=== PATIENT | male | born 1970 | race Caucasian/White ===

== ENCOUNTER 2021-10-29 06:15 | Day surgery (SDC) | payer BC, SELFPAY ==
[2021-10-29] VITALS (8 sets, daily range): BP systolic 116–130; BP diastolic 75–79; PULSE 63–74; RESP 15–16; TEMP 36.1–36.3; O2SAT 92–98; BMI 27.8
[2021-10-29] MEDS: BUPIVACAINE 0.5% 30 ML INJECTION (07:00)
--- NOTE | 2021-10-29 07:34 | SUR.OPER ---
PATIENT QUESTIONS ANSWERED SATISFACTORILY PREOPERATIVELY.? PATIENT BROUGHT TO OR #3 PER WHEELCHAIR.? Patient positioned supine on OR #3 bed.?The perioperative?team supported arms bilaterally on arm boards.? Final approval of positioning by surgeon.?
--- NOTE | 2021-10-29 07:35 | PM.ORPRC ---
Procedure Note Date of procedure: 10/29/21 Procedure: PREOPERATIVE DIAGNOSIS: 1. Right thumb flexor tenosynovitis - trigger thumb POSTOPERATIVE DIAGNOSIS: 1. Right thumb flexor tenosynovitis - trigger thumb PROCEDURE: 1. Right thumb flexor tendon sheath open release (A1 ruy) SURGEON: Margarito Holloway MD. ANTIQUE REPAIRER: Kyle Mortensen PA-C ANESTHESIA: Local anesthetic 6 mL via 50:50 mixture of 1% lidocaine with epi and 0.5% marcaine plain EBL: 2mL IMPLANTS: None TOURNIQUET: None COMPLICATIONS: None evident INDICATIONS: The patient is a pleasant 50-year-old male who has experienced right thumb catching/triggering for number of months. It has progressively gotten worse. Given the failure of nonoperative management, and how this affects daily life, surgery was recommended. DESCRIPTION OF PROCEDURE: Following a thorough discussion of risks, benefits, and alternatives consent was obtained and the operative digit(s) was marked. The patient was brought to the operating room and placed supine on the operating table. Local anesthesia induction was undertaken in preop holding. No antibiotics were administered as this was planned to be a local case only. Proper time-out was performed identifying proper patient, site, and procedure. The operative extremity was prepped and draped in the appropriate sterile fashion using ChloraPrep. A incision was made on the palmar surface of the hand overlying the MCP joint region of the appropriate digit(s) respecting the palmar creases being cautious not to cross these perpendicularly. Sharp incision through the skin, and blunt dissection through subcutaneous tissue allowing protection of crossing neurologic structures. The A1 ruy was visualized directly. It was incised sharply with a 15 blade. It was released completely from its distal to proximal extent under direct visualization. The tendon was inspected and found to be mildly striated consistent with some friction. Otherwise, it was intact. The tendon was removed out of the wound, and further inspected. The patient was asked to manually flex and extend the digits and showed no further catching. The catching, which was visualized initially, was no longer evident with reproduction of a manual fist and relaxation. Closure was performed with 4-O nylon in interrupted fashion. Soft dressings were applied, and the patient was transferred to the recovery room in stable condition. PLAN: 1. Encourage elevation of the operative extremity. 2. Range of motion of the fingers and hand/wrist as tolerated. 3. Ibuprofen/acetaminophen and/or Percocet as needed for pain control. 4. Follow up with PA visit in 12-16 days for wound check and suture removal.
[2021-10-29] MEDS: NEOMYCIN/BACITRACIN/POLYMYXIN B 1 APPLIC TOPICAL (07:42)
--- NOTE | 2021-10-29 08:17 | SUR.PREOP ---
SAME DAY SURGERY LOCAL INJECTION SITE VERIFICATION WAS PERFORMED BY SURGEON/PA AND PATIENT PRIOR TO LOCAL ANESTHETIC BEING INJECTED TO OPERATIVE SITE.
== END 2021-10-29 08:12 | disposition home or self-care (01) ==
PROVIDERS: PCP Family Medicine; Visit Provider Orthopaedic Surgery Sports Medicine
PROC: (CPT 26055; principal; 2021-10-29 07:15)
DX: M65.311 Trigger thumb, right thumb (principal); M65.841 Other synovitis and tenosynovitis, right hand
CPT/HCPCS: 26055; J3490

== ENCOUNTER 2021-12-03 09:28 | Emergency (ER) | payer BC, SELFPAY ==
[2021-12-03] VITALS (7 sets, daily range): BP systolic 129–145; BP diastolic 79–89; PULSE 59–69; RESP 12–20; TEMP 36.4; O2SAT 96–99; BMI 27.9
--- NOTE | 2021-12-03 10:33 | CRLHL7_ITS ---
For Patients: As a result of the Century Cures Act, medical imaging exams and procedure reports are released immediately into your electronic medical record. You may view this report before your referring provider. If you have questions, please contact your health care provider. INDICATION: Constant left arm pressure and intermittent finger coolness TECHNIQUE: CT chest PE was acquired with 98 cc Isovue 370 intravenous contrast. COMPARISON: None. FINDINGS: Heart and vasculature: Contrast opacification of the pulmonary arterial tree is adequate. No sign of pulmonary embolism. Heart size is normal. Thoracic aorta and pulmonary artery are normal in caliber. Lungs and pleural: No pleural effusion or pneumothorax. Subpleural nodule along the left major fissure measuring 4 millimeters (5, 103). Lymph nodes/mediastinum: No mediastinal, hilar, or axillary adenopathy. Chest wall: No masses. Upper abdomen: Normal. Bones: Unremarkable for age. IMPRESSION: 1. No evidence of pulmonary embolus. 2. Subpleural nodule along the left major fissure measuring 4 millimeters. Management as per Zayra society criteria below. SOCIETY GUIDELINES - SOLID NODULES: SINGLE LOW RISK - nodule less than 6 mm: No routine follow-up. SINGLE HIGH RISK - nodule less than 6 mm: Optional CT at 12 months. Please note that all CT scans at this facility use dose modulation, iterative reconstruction, and/or weight-based dosing when appropriate to reduce radiation dose to as low as reasonably achievable. Dictated by Pranav Larson MD @ 12/03/2021 12:22:11 PM (Electronically Signed)
--- NOTE | 2021-12-03 10:35 | ED_ITS ---
HPI - General Adult General Chief complaint: Chest Pain Stated complaint: Pain in chest and lt arm and back Time Seen by Provider: 12/03/21 10:19 History of Present Illness HPI narrative: 50-year-old man presenting to the emergency department with left arm pressure that has been increasing over the last week. Initially at rest might feel sensation of somebody pushing firmly on his upper under arm area and now it has become fairly constant. Will flare at times to more intense and will feel cold in his fingers of the same hand. All his fingers. He does not recall any trauma. No neck pain. He has been having pain now that he would not necessarily associate with this in his left upper back. No actual chest pain. No shortness of breath. No fever no cough cold symptoms. He has over this time, maybe a little bit longer also been experiencing dizziness with some spinning around him. Not so much lightheadedness. He noticed this rolling over in bed or when he bends down and then comes back up. There was a brief episode some time back where he had a flickering of his vision briefly during a conversation I believe. He notes that his mother struggled with vertigo. He maybe feels slightly congested but not noticeably so, just on reflection here in conversation. No facial pain. No visual disturbance at this time. Spouse was diagnosed with COVID 10 days ago. He himself has been free of what he would say would are associated symptoms. He has tested negative. He is vaccinated. Arm discomfort is not associated with movement. 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 Related Data Home Medications Medication Instructions Recorded Confirmed aspirin 81 mg tablet,delayed 81 mg PO QDAY 10/22/21 11/09/21 release lisinopril 20 mg tablet 20 mg PO DAILY 10/22/21 11/09/21 sildenafil 100 mg tablet 50 - 100 mg PO .As Needed PRN 10/22/21 11/09/21 Allergies Allergy/AdvReac Type Severity Reaction Status Date / Time No Known Allergies Allergy Unknown Verified 12/03/21 09:43 [facility] Surgical History (Updated 11/09/21 @ 08:47 by Kyle Mortensen PA-C) History of arthroscopy of right knee (02/12/17) History of arthroscopy of right shoulder (03/24/07) Family History (Updated 10/19/21 @ 15:15 by Fredis Carmona) Maternal Grandfather Coronary artery disease Paternal Grandfather Coronary artery disease Father Diabetes High blood pressure Mother High blood pressure Social History (Updated 10/22/21 @ 10:24 by Alirio Back MD) Narrative: SOCIAL HISTORY: . Three children ages 13, 15, 26. He has a grandchild. 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 Lives in [place]. He is sexually active. No regular exercise. HABITS: Tobacco use is about 1 pack cigarettes per day for 20+ years. Alcohol use is about 2 drinks per week. Marijuana use once per week. FAMILY HISTORY: Grandfather with skin cancer. Father with diabetes. Smoking Status: Current every day smoker What tobacco products do you use: cigarettes Do you use any of these nicotine containing products: None Second hand tobacco smoke exposure: Yes How often do you have a drink containing alcohol: 2-3 times a week How many standard drinks containing alcohol do you have on a typical day: 1 or 2 How often do you have six or more drinks on one occasion: Less than monthly AUDIT-C Alcohol total score: 4 Non-prescribed substance use: marijuana (any form) service: No Exam Narrative: Exam Narrative: Very pleasant. Of good energy. Breathing easily. Lungs are clear. Neck is supple without JVD. Full range of motion of the neck does not elicit reproduction of his symptoms. Not able to reproduce discomfort to palpation over the trapezius or the back really. Though he did indicate that periscapular area on the left was an area of discomfort though not at this time Strong and equal upper extremity pulses. Moving all extremities without difficulty and well perfused peripherally. No extremity edema No pain to palpation about his left shoulder. There is no axillary abnormality. Intact sensation. Cranial nerves 2-12 intact. Rotational movement of the head does not reproduce dizziness. There is no nystagmus. Looking up or down as well with his head does not reproduce the dizziness at this time. TMs are clear. Oropharynx is hyperemic Abdomen is soft nontender. Const: Vital Signs, click to edit/add: Vital Signs - 24 hr 12/03/21 09:44 12/03/21 10:00 12/03/21 10:30 Temperature 97.5 F L Pulse Rate [Apical ] 66 66 69 Respiratory Rate 16 20 19 Blood Pressure [Le ft Upper Arm] 145/88 H 135/83 145/89 H Pulse Oximetry 96 97 98 Oxygen Delivery Me thod Room Air Room Air Room Air 12/03/21 11:13 12/03/21 11:31 12/03/21 12:00 Temperature Pulse Rate [Apical ] 69 59 L 61 Respiratory Rate 19 12 Blood Pressure [Le ft Upper Arm] 132/87 129/79 138/85 Pulse Oximetry 99 99 99 Oxygen Delivery Me thod Room Air Room Air Room Air 12/03/21 12:30 Temperature Pulse Rate [Apical ] 65 Respiratory Rate 15 Blood Pressure [Le ft Upper Arm] 131/81 Pulse Oximetry 98 Oxygen Delivery Me thod Room Air Documenting provider has reviewed patient's vital signs: yes Course Reevaluation(s) Reevaluation #1: All symptoms now resolved Time: 12:44 Vital Signs Vital signs: Initial Vital Signs Temperature 97.5 F L 12/03/21 09:44 Temperature Source Temporal Artery Scan 12/03/21 09:44 Pulse Rate 66 12/03/21 09:44 Pulse Rhythm 12/03/21 09:44 Respiratory Rate 16 12/03/21 09:44 Blood Pressure 145/88 H 12/03/21 09:44 Blood Pressure Mean 107 12/03/21 09:44 Blood Pressure Position Supine 12/03/21 09:44 Pulse Oximetry 96 12/03/21 09:44 Oxygen Delivery Method 12/03/21 09:44 Vital Signs Temperature 97.5 F L 12/03/21 09:44 Pulse Rate 66 12/03/21 09:44 Respiratory Rate 16 12/03/21 09:44 Blood Pressure 145/88 H 12/03/21 09:44 Pulse Oximetry 96 12/03/21 09:44 Oxygen Delivery Method 12/03/21 09:44 Temperature 97.5 F L 12/03/21 09:44 Pulse Rate 65 12/03/21 12:30 Respiratory Rate 15 12/03/21 12:30 Blood Pressure 131/81 12/03/21 12:30 Pulse Oximetry 98 12/03/21 12:30 Oxygen Delivery Method 12/03/21 12:30 Medical Decision Making MDM Narrative Medical decision making narrative: I think complaints are of separate issues/etiologies. Does seem to describe some positional vertigo. Less likely vascular issue in his neck Regarding his arm pain/pressure, seems little more puzzling Does not seem to have the build for thoracic outlet. Not reproducible to movement of the neck. With the persistence of his symptoms though it think might be warranted to image his chest. Monitored on inventory administrator and further evaluation for potential cardiac etiology was also done. Workup essentially negative I did review CT images. Looked unremarkable. Radiology over-read however as below IMPRESSION: 1. No evidence of pulmonary embolus. 2. Subpleural nodule along the left major fissure measuring 4 millimeters. Management as per Zayra society criteria below. SOCIETY GUIDELINES - SOLID NODULES: SINGLE LOW RISK - nodule less than 6 mm: No routine follow-up. SINGLE HIGH RISK - nodule less than 6 mm: Optional CT at 12 months. I discussed the findings above with Mr. Perea. Discussed need for follow-up imaging given his risk factor. Encouraged smoking cessation. Lab Data Labs: Lab Results 12/03/21 12/03/21 12/03/21 Range/Units 10:00 10:00 10:00 WBC 9.66 (4.50-11.00) K/uL RBC 4.86 (4.30-5.90) m/uL Hgb 16.0 (13.5-17.5) gm/dL Hct 45.8 (37.0-53.0) % MCV 94 (80-100) fL MCH 33 (26-34) pg MCHC 35 (32-36) gm/dL RDW Coeff of Rj 12.9 (11.5-15.5) % Plt Count 258 (140-440) K/uL Neut % (Auto) 66.1 (42.0-72.0) % Lymph % (Auto) 25.4 (20-44) % [place] % (Auto) 6.2 (0.0-11.0) % Eos % (Auto) 1.7 (0.0-7.0) % Baso % (Auto) 0.5 (0.0-3.0) % Neut # (Auto) 6.39 (1.7-7.0) K/uL Lymph # (Auto) 2.45 (0.90-2.90) K/uL [place] # (Auto) 0.60 (0.00-0.90) K/UL Eos # (Auto) 0.16 (0.00-0.50) K/uL Baso # (Auto) 0.05 (0.00-0.30) K/uL Abs Immat Gran (auto) 0.01 (0.00-0.30) K/uL D-Dimer Quant (PE/DVT) 0.34 (0.00-0.50) ug/ml Sodium 140 (135-149) mmol/L Potassium 3.9 (3.6-5.1) mmol/L Chloride 104 (96-114) mmol/L Carbon Dioxide 27 (20-32) mmol/L BUN 13 (5-24) mg/dL Creatinine 0.9 (0.5-1.5) mg/dL Estimated Creat Clear 105.75 Estimated GFR 105 ml/min Glucose 100 (60-115) mg/dL Calcium 9.7 (8.4-10.6) mg/dL Troponin I < 0.01 L (0.01-0.04) ng/mL C-Reactive Protein 0.6 (0.5-1.0) mg/dL NT-Pro-B Natriuret Pep (0-125) PG/mL SARS-CoV-2 (PCR) (Negative) POC Troponin I (0.01-0.04) ng/ml 12/03/21 12/03/21 12/03/21 Range/Units 10:00 10:00 10:34 WBC (4.50-11.00) K/uL RBC (4.30-5.90) m/uL Hgb (13.5-17.5) gm/dL Hct (37.0-53.0) % MCV (80-100) fL MCH (26-34) pg MCHC (32-36) gm/dL RDW Coeff of Rj (11.5-15.5) % Plt Count (140-440) K/uL Neut % (Auto) (42.0-72.0) % Lymph % (Auto) (20-44) % [place] % (Auto) (0.0-11.0) % Eos % (Auto) (0.0-7.0) % Baso % (Auto) (0.0-3.0) % Neut # (Auto) (1.7-7.0) K/uL Lymph # (Auto) (0.90-2.90) K/uL [place] # (Auto) (0.00-0.90) K/UL Eos # (Auto) (0.00-0.50) K/uL Baso # (Auto) (0.00-0.30) K/uL Abs Immat Gran (auto) (0.00-0.30) K/uL D-Dimer Quant (PE/DVT) (0.00-0.50) ug/ml Sodium (135-149) mmol/L Potassium (3.6-5.1) mmol/L Chloride (96-114) mmol/L Carbon Dioxide (20-32) mmol/L BUN (5-24) mg/dL Creatinine (0.5-1.5) mg/dL Estimated Creat Clear Estimated GFR ml/min Glucose (60-115) mg/dL Calcium (8.4-10.6) mg/dL Troponin I (0.01-0.04) ng/mL C-Reactive Protein (0.5-1.0) mg/dL NT-Pro-B Natriuret Pep 196 H (0-125) PG/mL SARS-CoV-2 (PCR) Negative SARS-CoV-2 (Negative) POC Troponin I 0.00 L (0.01-0.04) ng/ml ECG Data Attestation: I personally reviewed and interpreted this ECG as follows: (Normal sinus. Rate of 64) Discharge Plan Discharge Clinical Impression: Arm pain, Positional vertigo, Pulmonary nodule Patient Disposition: Home w/ Parent or Adult Condition: Improved Additional Instructions: I would follow up with your primary care provider to discuss further evaluation, possibly cardiac. Return for marked increase in pain, particularly associated with nausea, shortness of breath, chest pain. You might benefit from seeing Physical therapy or maybe even Neurology about this vertigo. It is not clear to me that this is related to what is going on with your arm. Physical therapy can be helpful with training of maneuvers and diagnosis confirmation. See also handout on upper back exercises to do daily. Sometimes upper back discomfort can cause a sensation of arm pressure/discomfort as well. As discussed given smoking risk factor, strongly consider following up for repeat imaging in the form of CT of your chest in about 12 months to track this small pulmonary nodule. Prescriptions: No Action lisinopril 20 mg tablet 20 mg PO DAILY aspirin 81 mg tablet,delayed release (DR/EC) 81 mg PO QDAY sildenafil 100 mg tablet 50 - 100 mg PO .As Needed PRN Rx Instructions: TAKE 1 TAB 1 HR PRIOR TO INTERCOURSE Follow Up/Referrals: Alirio Back MD [Primary Care Provider] - Stand Alone Forms: [facility] Info Instructions
--- OUTSIDE RECORDS SUMMARY | 2021-12-03 10:40 | XMS_ITS ---
:1970 Author Care Team Providers Name Role Phone Guillermo Lama Primary Care Provider Unavailable Allergies Code Code System Name Reaction Severity Status Onset NKDA ? Medications Name Status Start Date Stop Date ? ? amoxicillin 500 mg capsule Active ? Not a vailable TK 2 CS PO NOW THEN 1 C TID UNTIL GONE aspirin 81 mg tablet,delayed release Active ? Not available atorvastatin 10 mg tablet Active ? Not av ailable clonazepam 0.5 mg tablet Active ? Not robin ilable cyclobenzaprine 10 mg tablet Active ? Not available fluoxetine 10 mg capsule Active ? Not robin ilable lisinopril 20 mg tablet Active ? Not avai lable meloxicam 15 mg tablet Active ? Not avail able sildenafil 50 mg tablet Active ? Not avai lable Problems No Known Problems Procedures None recorded. Results Lab Results Date Name Specimen Result Interpretation Description Value Range Status Address ? 06/08/2020 SARS CoV 2 RNA, Nose (nasal ? Result negative ? ? [facility] QL, JACINTO+probe, passage) Urgent [facility] Nose [place]: [address] Past Encounters 06/08/2020 Exposure to SARS-CoV-2 Sumeet Randhawa, [place]: [address] [id number], Ph. Social History None recorded. Vaccine List None recorded. Plan of Care Reminders Provider Appointments None recorded. ? ? Lab None recorded. ? ? Referral None recorded. ? ? Procedures None recorded. ? ? Surgeries None recorded. ? ? Imaging None recorded. ? ? Vitals Blood Pressure 114/68 mm[Hg]
--- OUTSIDE RECORDS SUMMARY | 2021-12-03 10:40 | XMS_ITS | Clinical Summary ---
:1970 Author Organization [facility] [place] [address] Care Team Providers Name Role Phone Michael Hernandez Primary Care Provider [phone] Allergies No known active allergies Medications Medication Sig Dispensed Refills Start Date End Date Status lisinopril Take 20 mg by mouth 0 Active (PRINIVIL; ZESTRIL) once daily. 20 mg tablet aspirin chewable 81 Take 81 mg by mouth 0 Active mg chewable tablet once daily with a meal. HYDROcodone-acetamin Take 1-2 tablets by 0 Active ophen, 5-325 mg, mouth every 6 hours (NORCO) per tablet if needed for Pain Max acetaminophen dose: 4000 mg in 24 hrs. SILDENAFIL CITRATE Take 50 mg by mouth 0 Active (SILDENAFIL ORAL) once daily if needed. HYDROcodone-acetamin Take 1-2 tablets by 40 tablet 0 7 Active ophen, 5-325 mg, mouth every 6 hours (NORCO) per if needed for Pain tabletIndications: Max acetaminophen Complex tear of dose: 4000 mg in 24 medial meniscus of hrs. right knee as current injury, subsequent encounter atorvastatin Take 10 mg by mouth 0 Active (LIPITOR) 10 mg once daily. tablet Active Problems Not on file Immunizations Name Administration Dates Next Due Hepatitis B (Adult) 11/07/2006, 06/05/2006, 05/07/200611/05 Social History Tobacco Use Types Packs/Day Years Used Date Current Every Day Smoker Cigarettes 1 Smokeless Tobacco: Former User Tobacco Cessation: Ready to Quit: No; Co unseling Given: Yes Alcohol Use Standard Drinks/Week Comments Yes 0 (1 standard drink = 0.6 oz pure alcoho l) 1 drink per week Alcohol Habits Answer Date Recorded How often do you have a drink containing alcohol? Not asked How many drinks containing alcohol do you have on a Not aske d typical day when you are drinking? How often do you have six or more drinks on one Not asked occasion? Comment: 1 drink per week 02/12/2017 Sex Assigned at Date Recorded Not on file Obstetrics History Last Filed Vital Signs Vital Sign Reading Time Taken Comments Blood Pressure 161/87 03/11/2019 12:15 PM PHARMACY AIDE Pulse 74 03/11/2019 12:15 PM PHARMACY AIDE Temperature 37.2 ??C (99 ??F) 03/11/2019 10:46 AM PHARMACY AIDE Respiratory Rate 18 03/11/2019 10:46 AM PHARMACY AIDE Oxygen Saturation 99% 03/11/2019 12:15 PM PHARMACY AIDE Inhaled Oxygen Concentration - - Weight 88.9 kg (195 lb 14.4 oz) 03/11/2019 10:46 AM PHARMACY AIDE Height 180.3 cm (5' 11) 03/11/2019 10:46 AM PHARMACY AIDE Body Mass Index 27.32 03/11/2019 10:46 AM PHARMACY AIDE Plan of Treatment Health Maintenance Due Date Last Done Comments COVID-19 vaccine series (#1) 06/11/1972 Tdap 12/11/1982 Depression screening for age 12+ 1983 BMI (ht and wt on same day) for age 18+ 12/11/1989 Hepatitis C screening for age 18-79 12/11/1989 Tetanus booster 1991 Colonoscopy through age 75 12/11/2016 Lipids for age 45-75 12/11/2016 Influenza for age 9-49 11/08/2021 Results Not on filefrom Last 3 Months Insurance Payer Benefit Plan / Subscriber ID Effective Dates Phone Addre ss Type Group [employer] OF [id number] 2014-Present [address] [place] [address] [employer] OF [id number] 2017-Present [address] [place] [address] (Home) JOSIE DAWSON [phone] (Work) Advance Directives Latest Code Status on File Code Status Date Activated Date Inactivated Comments Full Code 02/12/2017 6:40 AM 02/12/2017 1:08 PM Care Teams Sponsorship Manager Relationship Specialty Start Date End Date Michael Hernandez MBBS PCP - General Family Practice 12/06/[address] [place] [phone]
[2021-12-03 10:44] LABS: Basophils Absolute Auto 0.05 K/uL (0.00-0.30); Basophils Percent Auto 0.5 % (0.0-3.0); Eosinophils Absolute Auto 0.16 K/uL (0.00-0.50); Eosinophils Percent Auto 1.7 % (0.0-7.0); Hematocrit 45.8 % (37.0-53.0); Immature Granulocytes Abs Auto 0.01 K/uL (0.00-0.30); Lymphocytes Absolute Auto 2.45 K/uL (0.90-2.90); Lymphocytes Percent Auto 25.4 % (20-44); Mean Corpuscular HGB Conc 35 gm/dL (32-36); Mean Corpuscular Hemoglobin 33 pg (26-34); Mean Corpuscular Volume 94 fL (80-100); Monocytes Percent Auto 6.2 % (0.0-11.0); Neutrophils Absolute Auto 6.39 K/uL (1.7-7.0); Neutrophils Percent Auto 66.1 % (42.0-72.0); Platelet Count* 258 K/uL (140-440); RDW Coefficient of Variation % 12.9 % (11.5-15.5); Red Blood Count 4.86 m/uL (4.30-5.90); White Blood Count* 9.66 K/uL (4.50-11.00)
[2021-12-03 10:46] LABS: Slide Review Reflex No
[2021-12-03 11:00] LABS: Chloride* 104 mmol/L (96-114); Potassium* 3.9 mmol/L (3.6-5.1); Sodium* 140 mmol/L (135-149)
[2021-12-03 11:03] LABS: Creatinine* 0.9 mg/dL (0.5-1.5); Est. Creatinine Clearance* 105.75; Estimated Glomerular Filt Rate 105 ml/min
[2021-12-03 11:04] LABS: Blood Urea Nitrogen* 13 mg/dL (5-24); Calcium* 9.7 mg/dL (8.4-10.6); Carbon Dioxide* 27 mmol/L (20-32); Glucose* 100 mg/dL (60-115)
[2021-12-03 11:06] LABS: C Reactive Protein* 0.6 mg/dL (0.5-1.0); D Dimer Quantitative* 0.34 ug/ml (0.00-0.50)
[2021-12-03 11:21] LABS: Troponin I* < 0.01 ng/mL (0.01-0.04)
[2021-12-03 11:23] LABS: NT Pro B Type NatriureticPept* 196 PG/mL (0-125)
[2021-12-03 12:03] LABS: SARS PCR* Negative SARS-CoV-2 (Negative)
== END 2021-12-03 13:00 | disposition home or self-care (01) ==
PROVIDERS: Emergency Provider Family Medicine; PCP Family Medicine
DX: M79.602 Pain in left arm (principal); H81.10 Benign paroxysmal vertigo, unspecified ear; R91.1 Solitary pulmonary nodule
CPT/HCPCS: 36415; 71260; 80048; 83880; 84484; 85025; 85379; 86140; 87635; 93005; 94761; 99284; 99285; Q9967

== ENCOUNTER 2022-05-01 07:53 | Outpatient (CLI) | payer BC, SELFPAY ==
[2022-05-01 13:05] LABS: Chloride* 108 mmol/L (96-114)
[2022-05-01 13:06] LABS: Albumin* 4.5 g/dL (3.3-5.0); Sodium* 142 mmol/L (135-149)
[2022-05-01 13:07] LABS: Potassium* 5.3 mmol/L (3.6-5.1)
[2022-05-01 13:08] LABS: Cholesterol* 197 mg/dL (90-199)
[2022-05-01 13:09] LABS: Alanine Aminotransferase* 23 U/L (4-50); Alkaline Phosphatase* 73 U/L (40-150); Aspartate Amino Transferase* 30 U/L (12-35); Bilirubin Total* 0.5 mg/dL (0.1-1.5); Blood Urea Nitrogen* 14 mg/dL (7-30); Calcium* 9.6 mg/dL (8.4-10.6); Carbon Dioxide* 28 mmol/L (20-32); Creatinine* 0.9 mg/dL (0.5-1.5); Estimated Glomerular Filt Rate 104 ml/min; Glucose* 100 mg/dL (60-115); Total Protein* 7.6 g/dL (6.0-8.3); Triglycerides* 106 mg/dL (40-149)
[2022-05-01 13:10] LABS: HDL Cholesterol* 49 mg/dL (>=40); LDL Cholesterol Calculated 127 mg/dL (<100)
== END 2022-05-01 07:54 | disposition home or self-care (01) ==
PROVIDERS: PCP Family Medicine; Visit Provider Family Medicine
DX: Z00.00 Encounter for general adult medical examination without abnormal findings (principal); E78.5 Hyperlipidemia, unspecified; I10 Essential (primary) hypertension
CPT/HCPCS: 80053; 80061

== ENCOUNTER 2022-05-30 07:56 | Outpatient (CLI) | payer BC, SELFPAY ==
--- NOTE | 2022-05-30 08:39 | W.ANESCHARGE ---
Anesthesia Charges Start Date/Time Anesthesia Start Date: 05/30/22 Anesthesia Start Time: 08:45 Stop Date/Time Anesthesia Stop Date: 05/30/22 Anesthesia Stop Time: 09:22
--- NOTE | 2022-05-30 09:30 | W.ANESCHARGE ---
Anesthesia Charges Start Date/Time Anesthesia Start Date: 05/30/22 Anesthesia Start Time: 08:45 Stop Date/Time Anesthesia Stop Date: 05/30/22 Anesthesia Stop Time: 09:22
== END 2022-05-30 07:57 | disposition home or self-care (01) ==
LOC: OP CLINIC 07:57
PROVIDERS: PCP Family Medicine; Visit Provider Surgery
DX: Z12.11 Encounter for screening for malignant neoplasm of colon (principal); K63.5 Polyp of colon
CPT/HCPCS: 45385; 811; 812; 88305; J2704

== ENCOUNTER 2022-09-24 14:18 | Outpatient (CLI) | payer BC, SELFPAY | END 2022-09-24 14:19 | disposition home or self-care (01) | LOC: NFLDREF 14:20 | PROVIDERS: PCP Family Medicine; Visit Provider Internal Medicine | DX: I10 Essential (primary) hypertension (principal); E78.5 Hyperlipidemia, unspecified; Z95.1 Presence of aortocoronary bypass graft | CPT/HCPCS: 80053 ==